=== PATIENT | female | born 1970 | race Caucasian/White ===

== ENCOUNTER → 2016-05-22 | Outpatient (CLI) | payer MEDICAID ==
[2016-05-22 17:08] LABS: C Reactive Protein <5.0 mg/L (<10.0)
[2016-05-22 17:09] LABS: Rheumatoid Factor, Qnt <9 IU/mL (<12)
[2016-05-24 05:08] LABS: EBV - EA (IgG) 59.9 U/mL (<9.0); EBV - EBNA (IgG) 60.3 U/mL (<18.0); EBV - VCA (IgG) >750.0 U/mL (<18.0); EBV - VCA IgM <10.0 U/mL (<36.0); Lyme Antibodies Total(IgG/IgM) 1.08 (<0.90)
== END | disposition home or self-care (01) ==
LOC: LABWHC1 16:20
PROVIDERS: ATTEND Physician Assistant
DX: M62.81 Muscle weakness (generalized) (principal)
CPT/HCPCS: 36415; 85652; 86038; 86140; 86431; 86618; 86663; 86664; 86665

== ENCOUNTER → 2016-05-28 | Outpatient (CLI) | payer MEDICAID ==
--- NOTE | 2016-05-29 09:51 | ECHOF ---
Referral Reason:I20.9 Angina pectoris MEASUREMENTS -------- HEIGHT: 170.2 cm WEIGHT: 88.0 kg BP: IVSd: 1.0 cm (0.6 - 1.1) LVIDd: 3.9 cm (3.9 - 5.3) LVPWd: 1.1 cm (0.6 - 1.1) IVSs: 1.2 cm LVIDs: 2.8 cm LVPWs: 1.0 cm Ao Diam: 3.6 cm (2.0 - 3.7) AV Cusp: 2.5 cm (1.5 - 2.6) LA Diam: 2.9 cm (2.7 - 3.8) MV EXCURSION: 17.484 mm (> 18.000) MV EF SLOPE: 68 mm/s (70 - 150) EPSS: 1.0 cm MV E Evin: 0.34 m/s MV DecT: 240 ms MV A Evin: 0.70 m/s MV E/A Ratio: 0.48 RAP: 5.00 mmHg RVSP: 15.73 mmHg FINDINGS -------- Sinus rhythm. This was a technically good study. LV size, wall thickness and systolic function are normal, with an EF greater than 55%. Apical septum LV wall motion is hypokinetic. The right ventricle is normal in size. The left atrial size is normal. The right atrial size is normal. There is mild aortic valve sclerosis. There is no evidence of aortic regurgitation. Mild mitral annular calcification present. Mild mitral regurgitation is present. Mild tricuspid regurgitation present. There is no evidence of pulmonary hypertension. The right ventricular systolic pressure, as measured by Doppler, is 15.73mmHg. There is no pulmonic regurgitation present. The aortic root size is normal. There is no pericardial effusion. CONCLUSIONS -------- 1. LV size, wall thickness and systolic function are normal, with an EF greater than 55%. 2. Apical septum LV wall motion is hypokinetic. 3. There is mild aortic valve sclerosis. 4. Mild mitral annular calcification present. 5. Mild mitral regurgitation is present. 6. Mild tricuspid regurgitation present. 7. There is no evidence of pulmonary hypertension. 8. The right ventricular systolic pressure, as measured by Doppler, is 15.73mmHg. RAILROAD SIGNAL OPERATOR: Tiff Burnett RDCS
== END | disposition home or self-care (01) ==
LOC: RADECHMAIN 14:48
PROVIDERS: ATTEND Internal Medicine Clinical Cardiac Electrophysiology
DX: I08.3 Combined rheumatic disorders of mitral, aortic and tricuspid valves (principal)
CPT/HCPCS: 93306

== ENCOUNTER 2016-05-31 08:59 | Day surgery (SDC) | payer MEDICAID ==
[2016-05-28 13:31] VITALS: BMI 30.4
[~2016-05-31 08:59] MED LIST: SODIUM CHLORIDE 0.9% 1,000 ML IV SCH
[2016-05-31 09:16] VITALS: BP 151/98; PULSE 100; RESP 16; TEMP 97.7
--- NOTE | 2016-05-31 12:22 | P.PCN ---
Postoperative Diagnosis: Twelve-lead ECG report Sinus rhythm, 93 bpm normal VT narrow QRS normal ST segments Tilt table test report Baseline blood pressure 135/88 mmHg, Baseline heart rate 97 beats a minute Patient tilted upright at night was 70 per protocol almost immediate increase in heart rate 217 bpm. Maximum heart rate of about 132 bpm. Sinus tachycardia persisted throughout the test heart rates between 114-130 beats a minute. Blood pressure response normal Patient felt a choking sensation. The procedure especially initially upon assuming upright position Impression Orthostatic intolerance Disposition: same day
--- NOTE | 2016-05-31 13:28 | LTR ---
May 31, 2016 CHIN EVERETT DO RE: Dionna Pritchard Dear Dr. Everett: I had the pleasure of seeing Dionna Pritchard in electrophysiology followup. Dionna underwent a tilt table test which demonstrated evidence of orthostatic intolerance (postural tachycardia syndrome). In addition, she has cutaneous symptoms as well as upper GI symptoms, which is part ( ) of this condition. I have suggested the followin. Increasing fluid and salt intake and I had a detailed discussion regarding this. 2. Endurance training as well as strength training of the lower extremities. 3. I am starting her on nadolol initially at 10 mg and then hopefully in the next few weeks she can go up to 20 mg p.o. daily. Her blood pressure was in the normal range between 120 to 140 mmHg and therefore I think she should be able to tolerate a small dose of nadolol. Thank you for entrusting me in the care of your patient. Warm regards. Sincerely, SHANELLE BALLARD MD
== END 2016-05-31 12:54 | disposition home or self-care (01) ==
LOC: CATHEP 08:59
PROVIDERS: ATTEND Internal Medicine Clinical Cardiac Electrophysiology
DX: R55 Syncope and collapse (principal)
CPT/HCPCS: 93005; 93660

== ENCOUNTER → 2016-06-08 | Outpatient (CLI) | payer MEDICAID | LOC: LABWHC1 16:38 | PROVIDERS: ATTEND Physician Assistant | DX: R20.2 Paresthesia of skin (principal) | CPT/HCPCS: 86618 ==

== ENCOUNTER → 2016-11-17 | Outpatient (CLI) | payer MEDICAID ==
--- NOTE | 2016-11-17 12:22 | MR ---
EXAMINATION TYPE: MR angio head wo con DATE OF EXAM: 11/17/2016 COMPARISON: NONE HISTORY: Memory Loss, Numbness, Low Back Pain, BiLateral Hip Pain, x10 years TECHNIQUE: Utilizing 3-D [id number] intracranial MRA of the [place] was performed. FINDINGS: The vertebrobasilar and carotid systems are patent. There is no sizable aneurysm or vascular malform ation. A1 segment of the right anterior cerebral artery is diminutive in size. IMPRESSION: 1. No evidence of vascular malformation or sizable aneurysm.
--- NOTE | 2016-11-17 12:58 | MR ---
EXAMINATION TYPE: MR cervical spine wo con DATE OF EXAM: 11/17/2016 COMPARISON: NONE HISTORY: Memory Loss, Numbness, Low Back Pain, BiLateral Hip Pain, x10 years TECHNIQUE: T1 sagittal and coronal, T2 sagittal, and gradient echo axial views of the cervical spine are submitted. FINDINGS: The cranial cervical junction is preserved. There is no abnormal signal seen within the sp inal cord or paraspinal soft tissues. At C2-3 there is no disc herniation or canal stenosis. Uncovertebral joint hypertrophy on the left in cidentally noted. At C3-4 there is no disc herniation or canal stenosis. Neural foramina patent. At C4-5 there is no disc herniation or canal stenosis. Neural foramina patent. At C5-6 there is mild uncovertebral joint hypertrophy and facet arthropathy. There is mild bilateral foraminal encroachment but no disc herniation or canal stenosis. At C6-7 there is severe degenerative disc disease with discogenic marrow changes. There is uncoverteb ral joint hypertrophy bilaterally. No canal stenosis or focal herniation. Neural foramina patent At C7-T1 there is no disc herniation, canal stenosis or foraminal encroachment. IMPRESSION: 1. At C6-7 there is severe degenerative disc disease with discogenic marrow changes. There is uncove rtebral joint hypertrophy bilaterally. No canal stenosis or focal herniation. Neural foramina patent. 2. Mild bilateral foraminal encroachment C5-C6 secondary to hypertrophic changes. EXAMINATION TYPE: MR paraspinal wo con DATE OF EXAM: 11/17/2016 COMPARISON: NONE HISTORY: Memory Loss, Numbness, Low Back Pain, BiLateral Hip Pain, x10 years TECHNIQUE: T1 and T2 axial and sagittal images of the lumbar spine are submitted. FINDINGS: There is no abnormal signal seen within the visualized spinal cord or paraspinal soft tissu es. At T12-L1 there is moderate degenerative disc disease. Right lateral disc bulging noted but no canal stenosis or foraminal encroachment. Mild facet arthropathy. At L1-2 there is mild degenerative disc disease but no disc herniation or canal stenosis. Neural fora marcia patent. Mild facet arthropathy. At L2-3 there is no degenerative disc disease, disc herniation, or canal stenosis. Mild facet arthrop athy. At L3-4 there is moderate degenerative disc disease with broad-based central disc bulging but no geeta l stenosis or foraminal encroachment. Mild facet arthropathy. Mild effacement of thecal sac. At L4-5 there is severe degenerative disc disease with moderate facet arthropathy. There is mild to m oderate bilateral foraminal encroachment but no canal stenosis. At L5-S1 there is severe degenerative disc disease with discogenic marrow changes. Posterior hypertro phic spurring noted with mild bilateral foraminal encroachment facet arthropathy. No Canal stenosis. IMPRESSION: 1. Multilevel degenerative disc disease and facet arthropathy result in multilevel foraminal encroach ment as discussed above. No discrete herniation or canal stenosis. 2. Mild diffuse central disc bulging L3-L4 with mild thecal sac compression but no canal stenosis.
--- NOTE | 2016-11-17 12:58 | MR ---
EXAMINATION TYPE: MR brain wo con DATE OF EXAM: 11/17/2016 COMPARISON: NONE HISTORY: Memory Loss, Numbness, Low Back Pain, BiLateral Hip Pain, x10 years T1-weighted sagittal, T2, FLAIR, and diffusion axial, and T2 coronal coronal views of the brain are s ubmitted. There is no evidence of acute ischemia. The ventricles, basal cisterns, and sulci overlying the conv exities are consistent with the patient's age. There is no mass effect. Craniocervical junction maintained. Sella turcica has a normal appearance. No cerebellopontine angle mass. Changes of chronic sinusitis noted. White matter: No sizable areas of abnormal signal within the white matter. IMPRESSION: 1. No acute intracranial process. 2. Mild changes of chronic sinusitis.
== END | disposition home or self-care (01) ==
LOC: RADMRIMAIN 11:33
PROVIDERS: ATTEND Nurse Practitioner Acute Care
DX: M51.26 Other intervertebral disc displacement, lumbar region (principal); M50.323 Other cervical disc degeneration at C6-C7 level; M51.36 Other intervertebral disc degeneration, lumbar region; M46.86 Other specified inflammatory spondylopathies, lumbar region; G95.29 Other cord compression
CPT/HCPCS: 70544; 70551; 72141; 72148

== ENCOUNTER → 2017-07-01 | Outpatient (CLI) | payer MEDICAID | END | disposition home or self-care (01) | LOC: RADUSWWP 14:07 | PROVIDERS: ATTEND Family Medicine | DX: M79.669 Pain in unspecified lower leg (principal) | CPT/HCPCS: 93923 ==

== ENCOUNTER → 2018-03-31 | Outpatient (CLI) | payer MEDICAID ==
--- NOTE | 2018-04-09 12:10 | HM ---
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 The average heart rate is about 78 beats per minute. The heart rate ranged from 56 to 115 beats per minute. Mostly this was a sinus rhythm and there were rare isolated PACs and PVCs noted. There was also evidence of some sinus tachycardia. When patient complained of having a fluttering feeling in the chest, she was in a normal sinus rhythm. There was no correlation of any arrhythmia with patient's perception of rapid heartbeat. There was about a 4-beat run of supraventricular beats noted. FINAL IMPRESSION: Predominant sinus rhythm without any correlation of arrhythmia when patient felt some fluttering in the chest. Average heart rate was about 78 beats per minute with rare isolated PACs and PVCs. MMODL / IJN: [id number] /
== END ==
LOC: RADECHMAIN 12:10
PROVIDERS: ATTEND Internal Medicine Clinical Cardiac Electrophysiology
DX: R06.02 Shortness of breath (principal); R07.2 Precordial pain; R00.0 Tachycardia, unspecified
CPT/HCPCS: 93225; 93226

== ENCOUNTER → 2018-04-14 | Outpatient (CLI) | payer MEDICAID ==
[2018-04-15 01:12] LABS: LDL Cholesterol,Calculated 66.8 mg/dL (0.0-131.0); VLDL Calculation 47.2 mg/dL (5.00-40.00)
== END | disposition home or self-care (01) ==
LOC: LABWHC1 15:40
PROVIDERS: ATTEND Nurse Practitioner Adult Health
DX: E78.2 Mixed hyperlipidemia (principal)
CPT/HCPCS: 36415; 80061; 84450; 84460

== ENCOUNTER → 2019-10-30 | Outpatient (CLI) | payer BC ==
[2019-10-30 14:34] LABS: Basophils # (A) 0.1 k/uL (0-0.2); Basophils % (A) 1 %; Eosinophils # (A) 0.4 k/uL (0-0.7); Eosinophils % (A) 6 %; HCT 45.5 % (34.0-46.0); HGB 14.6 gm/dL (11.4-16.0); Lymphocytes # (A) 1.9 k/uL (1.0-4.8); Lymphocytes % (A) 29 %; MCH 31.1 pg (25.0-35.0); MCV 97.1 fL (80.0-100.0); Mean Platelet Volume 7.3; Monocytes # (A) 0.4 k/uL (0-1.0); Monocytes % (A) 6 %; Neutrophils # (A) 3.7 k/uL (1.3-7.7); Neutrophils % (A) 56 %; Platelet Count 326 k/uL (150-450); RBC 4.69 m/uL (3.80-5.40); RDW 13.3 % (11.5-15.5); WBC 6.5 k/uL (3.8-10.6)
[2019-10-30 14:35] LABS: Appearance,Urine Clear (Clear); Bilirubin,Urine Negative (Negative); Blood,Urine Negative (Negative); Color,Urine Yellow; Glucose,Urine (UA) Negative (Negative); Ketones,Urine Negative (Negative); Leukocyte Esterase,Urine Negative (Negative); Nitrite,Urine Negative (Negative); PH, Urine 5.5 (5.0-8.0); Protein,Urine Negative (Negative); Specific Gravity,Urine 1.012 (1.001-1.035); Urobilinogen,Urine <2.0 mg/dL (<2.0)
[2019-10-30 19:09] LABS: African American GFR (CKD) 86.4 (60.0-200.0); Albumin 4.2 g/dL (3.80-4.90); Albumin/Globulin Ratio 1.75 (1.60-3.17); Anion Gap 8.8 mmol/L (4.00-12.00); BUN/Creat Ratio 11.11 Ratio (12.00-20.00); Calcium 9.4 mg/dL (8.7-10.3); Carbon Dioxide 27.2 mmol/L (21.6-31.8); Globulin 2.4 g/dL (1.6-3.3); Non-African American GFR(CKD) 74.6 (60.0-200.0); Potassium 3.8 mmol/L (3.5-5.5); Total Bilirubin 0.5 mg/dL (0.3-1.2); Total Protein 6.6 g/dL (6.2-8.2)
[2019-10-31 00:43] LABS: INR 1.06 (0.90-1.11); Prothrombin Time 11.3 sec (9.9-11.9)
== END | disposition home or self-care (01) ==
LOC: LABWHC1 14:05
PROVIDERS: ATTEND Family Medicine
DX: Z01.818 Encounter for other preprocedural examination (principal)
CPT/HCPCS: 36415; 80053; 81003; 85025; 85610; 85730

== ENCOUNTER → 2019-12-31 | Outpatient (CLI) | payer BC ==
--- NOTE | 2019-12-31 14:48 | US ---
EXAMINATION TYPE: US venous doppler duplex LE DATE OF EXAM: 12/31/2019 2:29 PM COMPARISON: NONE CLINICAL HISTORY: I82.90 DVT. Left leg pain SIDE PERFORMED: Bilateral TECHNIQUE: The lower extremity deep venous system is examined utilizing real time linear array sonog ti with graded compression, doppler sonography and color-flow sonography. VESSELS IMAGED: External Iliac Vein (EIV) Common Femoral Vein Deep Femoral Vein Greater Saphenous Vein * Femoral Vein Popliteal Vein Small Saphenous Vein * Proximal Calf Veins (* superficial vessels) Right Leg: Appears negative for DVT Left Leg: Appears negative for DVT IMPRESSION: 1. Normal bilateral lower extremity ultrasound
== END | disposition home or self-care (01) ==
LOC: RADUSWWP 13:57
DX: I82.90 Acute embolism and thrombosis of unspecified vein (principal)
CPT/HCPCS: 93970